=== PATIENT | male | born 1990 | race Caucasian/White ===

== ENCOUNTER 2016-09-23 23:51 | Emergency (ER) | payer MEDICAID ==
--- NOTE | 2016-09-24 00:48 | EDPHY ---
H & P Stated Complaint: R knee injury d/t fall during laser tag HPI/ROS: Chief complaint: Right knee injury History of present illness: This is a 25-year-old male who presents to the emergency department for a right knee injury. Approximately 1 day ago he fell on it. Since then he has had pain. It is worse with movement he states it also feels wobbly. He denies open wounds. He denies abnormal coolness or paresthesias in the leg. No other trauma reported. - Personal History Current Tetanus/Diphtheria Vaccine: Yes - Medical/Surgical History Hx Asthma: No Hx Chronic Respiratory Disease: No Hx Diabetes: No Hx Cardiac Disease: No Hx Renal Disease: No Hx Cirrhosis: No Hx Alcoholism: No Hx HIV/AIDS: No Hx Splenectomy or Spleen Trauma: No Other PMH: PMHx: epilepsy, add. PSHx: jaw - Social History Smoking Status: Former smoker - Physical Exam Exam: General: Alert, nontoxic Skin: No lesions consistent with trauma to the right leg Musculoskeletal: Minor tenderness to the anterior knee. He is ranging the knee with out discomfort. The knee appears stable. Vascular: DP and PT pulses 2+ Neurologic: Sensation intact throughout the right leg Constitutional: Initial Vital Signs Temperature (C) 36.4 C 09/23/16 23:54 Heart Rate 66 09/23/16 23:54 Respiratory Rate 16 09/23/16 23:54 Blood Pressure 129/71 H 09/23/16 23:54 O2 Sat (%) 99 09/23/16 23:54 O2 Delivery Mode Room Air Allergies/Adverse Reactions: Penicillins Allergy (Verified 09/03/16 19:34) Home Medications: Medication Instructions Recorded Adderall Xr 30 mg Capsule 09/03/16 Onfi 09/03/16 Trileptal 09/03/16 Medical Decision Making - Diagnostics Imaging: X-ray series of the right knee is unremarkable Procedures: Procedure: Splint placement. A knee immobilizing splint was applied. After application of the splint I returned and re-examined the patient. The splint was adequately immobilizing the joint and distal to the splint the patient's circulation and sensation was intact. Patient was given crutches with instructions ED Course/Re-evaluation: Patient seen under the supervision of my secondary supervising physician Dr. Villa Mccoy. Patient presents to the emergency department for right knee injury. The leg is neurovascularly intact. X-rays negative. However patient is describing instability. He is placed in knee immobilizer and placed on crutches. Referred to Orthopedics for further evaluation and care. Home care is discussed. Return precautions are given. Patient voiced understanding and agreement with plan. Departure - Departure Disposition: Home, Routine, Self-Care Clinical Impression: Right knee sprain Condition: Good Instructions: Knee Sprain (ED) Additional Instructions: Follow-up with Orthopedics next week for recheck If symptoms worsen or new symptoms develop return to the emergency department for recheck Referrals: [place],. [Primary Care Provider] - As per Instructions Emilia Montana MD [Medical Doctor] - As per Instructions
[2016-09-24 01:04] VITALS: BP 125/80; PULSE 67; RESP 20; TEMP 97.7; O2SAT 95
--- NOTE | 2016-09-24 08:07 | DX ---
Right Knee, Four Views September 24, 2016 Indication: Pain and swelling. Fall. Technique: AP, oblique, lateral, and Merchant views. Findings: The normally mineralized bones are anatomically aligned. No fracture, joint space abnormali ty, or underlying bony lesion. The patella is normally aligned on the Merchant view. No effusion. Impression: Normal. No fracture or effusion.
== END 2016-09-24 01:11 | disposition home or self-care (01) ==
DX: S83.91XA Sprain of unspecified site of right knee, initial encounter (principal); Z87.891 Personal history of nicotine dependence; W18.39XA Other fall on same level, initial encounter